=== PATIENT | female | born 1960 | race Caucasian/White ===

== ENCOUNTER 2020-11-24 19:29 | Emergency (ER) | payer BC ==
[~2020-11-24] VITALS: Ht 157.5 cm; Wt 66.4 kg
[2020-11-24 19:35] VITALS: BP 127/58
[2020-11-24] MEDS ORDERED: HYDROcodone/acetaminophen 10/325mg tab PO ONE (19:45)
[2020-11-24] MEDS ORDERED: TETanus/Pertussis (Acell)/Diphther VAC/PF (Tdap-Adult) 0.5ml syringe IMVAC ONE (19:45)
[2020-11-24] MEDS ORDERED: HYDR-3965 PO (20:16)
== END 2020-11-24 21:49 | disposition home or self-care (01) ==
LOC: ER 19:30
DX: S42.292A Other displaced fracture of upper end of left humerus, initial encounter for closed fracture (principal); S50.812A Abrasion of left forearm, initial encounter; M25.512 Pain in left shoulder; Z79.899 Other long term (current) drug therapy; W19.XXXA Unspecified fall, initial encounter; Y93.89 Activity, other specified; Y92.89 Other specified places as the place of occurrence of the external cause; Y99.8 Other external cause status
CPT/HCPCS: 29105; 73030; 73560; 90471; 90715; 99284